=== PATIENT | male | born 1980 | race Caucasian/White ===

== ENCOUNTER → 2024-04-24 10:18 | Outpatient (REF) | payer OTHER, SELFPAY | LOC: RAD 10:18 | PROVIDERS: ATTENDING PHYSICIAN Specialist; FAMILY PHYSICIAN Physician Assistant | DX: R31.9 Hematuria, unspecified (principal); R82.90 Unspecified abnormal findings in urine | CPT/HCPCS: 74176 ==

== ENCOUNTER 2024-07-18 19:07 | Emergency (ER) | payer OTHER, SELFPAY ==
[2024-07-18 19:12] VITALS: BP 158/94
[2024-07-18 19:34] LABS: % Basophils 0.4 % (0-2); % Eosinophils 0.1 % (0-6); % Immature Granulocytes 0.4 % (0-0.5); % Lymphocytes 11.5 % (20.5-51.1); % Monocytes 7.1 % (1.7-9.3); % Neutrophils 80.5 % (42.2-75.2); Absolute Basophils 0.1 10^3/uL (0-0.2); Absolute Immature Granulocytes 0.1 10^3/uL (0-0.05); Absolute Lymphocytes 1.6 10^3/uL (1.2-3.4); Absolute Neutrophils 11.4 10^3/uL (1.4-6.5); Hematocrit 46.7 % (39.0-52.0); Hemoglobin 16.8 g/dL (13.0-18.0); Mean Corpuscular Hgb 32.9 pg (27.0-31.0); Mean Corpuscular Volume 91.6 fL (80.0-94.0); Mean Platelet Volume 9.6 fL (7.4-10.4); Nucleated Red Blood Cells % 0 % (-); Platelet Count 202 10^3/uL (130-400); Red Cell Dist. Width 11.9 % (11.5-14.5); White Blood Cell Count 14.2 10^3/uL (4.8-10.8)
[2024-07-18 19:45] LABS: Lactic Acid 1.6 mmol/L (0.7-2.0)
[2024-07-18 19:46] LABS: COVID-19 Antigen Negative (Negative)
[2024-07-18 19:48] LABS: ALT (SGPT) 38 U/L (0-50); AST (SGOT) 40 U/L (17-59); Albumin 5.1 g/dl (3.5-5.0); Alkaline Phosphatase 47 U/L (38-126); Blood Urea Nitrogen 15 mg/dl (9-20); Calcium 9.9 mg/dl (8.4-10.2); Carbon Dioxide 28 mmol/L (22-30); Chloride 98 mmol/L (98-107); Glucose 105 mg/dl (70-99); Sodium 140 mmol/L (135-145); Total Bilirubin 1.1 mg/dl (0.2-1.3); eGFR > 60.00
[2024-07-18] MEDS: TYLENOL 1000 MG PO (20:54)
[2024-07-18 21:17] LABS: Urine Albumin Negative (Neg - Trace); Urine Bilirubin Negative (Negative); Urine Character Clear (Clear); Urine Color Yellow; Urine Glucose Negative (Negative); Urine Ketone Negative (Negative); Urine Leukocyte Negative (Negative); Urine Nitrite Negative (Negative); Urine Occult Blood Negative (Negative); Urine Specific Gravity 1.015 (<1.030); Urine Urobilinogen Negative (Neg - 1+)
[2024-07-18 22:15] VITALS: BP 109/71
--- NOTE | 2024-07-18 22:28 | ED.GENMED ---
History of Present Illness
General
Chief Complaint: Fever
Time Seen by Provider: 07/18/24 20:51
History of Present Illness
History of Present Illness:
43-year-old male presents the emergency department for evaluation of fever and chills developing today. States he felt well in the morning however the chills developed the afternoon and he felt fluttering in the chest thus prompting him to come to
the hospital. He feels better currently but did not take any antipyretics. He denies any coughing, URI symptoms, chest pain, shortness of breath, nausea, vomiting, or rashes. No ill contacts at home.
Past History
Past History
ED Past Medical History: GERD and HTN
ED Past Surgical History: None
Social History
Tobacco: Non-smoker
Living: with family
Review of Systems
Review of Systems
Allergies reviewed?: Yes
All Other Systems: ROS reviewed and negative except as documented in HPI and ROS
Phy Exam
Physical Exam
Physical Exam:
GEN: Well appearing, NAD, WDWN
Eyes: PERRLA, EOMs intact, no scleral icterus
HENT: NCAT, oral mucosa moist, no JVD, no cervical adenopathy.
Lungs: CTAB, no wheezes, rales, rhonchi, normal chest wall excursion
Cardiac: Tachycardic, regular, no murmur
Abdomen: S, NT, ND, NABS, no masses or hepatosplenomegaly
Neuro: AO x 3
MSK: No gross deformity or ecchymosis. No edema. No digital clubbing
Skin: No rashes, petechiae. Normal color, no pallor or jaundice.
Psych: Calm, cooperative, proper hygiene
Sepsis
Sepsis Screening
Sepsis Assessment: Sepsis Ruled Out
Sepsis Screen
Sepsis Screen: Sepsis Ruled Out
Date: 07/18/24
Time: 23:38
Course
Orders/Labs/Results
Orders:
Orders
07/18/24 19:15
Electrocardiogram (*1) Urgent
Reason for Study: Tachycardia
EKG- Treatment ONCE
07/18/24 19:25
COVID-19 Antigen Urgent
Source: Nasal Swab
Complete Blood Count/With Diff Urgent
Comprehensive Metabolic Panel Urgent
Lactate Level [Lactic Acid] Urgent
Influenza A+B Rapid Molecular Urgent
ZHANNA Source: Nasal Swab
Specimen Description:
07/18/24 20:46
Acetaminophen [Tylenol] 1,000 mg .ROUTE .STK-MED ONE
07/18/24 20:54
Acetaminophen [Tylenol] 1,000 mg PO NOW STA
07/18/24 21:07
Urinalysis Reflex To Culture Urgent
Date Specimen was Collected: 07/18/24
Time Specimen was Collected: 21:05
07/18/24 21:38
CR Chest - 2 Views Urgent
Comment:
Reason For Exam: fever
Abnormal Lab Results
07/18/24
19:25
WBC 14.2 H 10^3/uL
(4.8-10.8)
MCH 32.9 H pg
(27.0-31.0)
Abs Immat Gran (auto) 0.1 H 10^3/uL
(0-0.05)
Absolute Neuts (auto) 11.4 H 10^3/uL
(1.4-6.5)
Absolute Monos (auto) 1.0 H 10^3/uL
(0.1-0.6)
Neutrophils % 80.5 H %
(42.2-75.2)
Lymphocytes % 11.5 L %
(20.5-51.1)
Glucose 105 H mg/dl
(70-99)
Albumin 5.1 H g/dl
(3.5-5.0)
07/18/24 19:25
07/18/24 19:25
Vital Signs
Initial and Last Documented VS:
Initial Vital Signs
Temp Pulse Resp BP Pulse Ox
101.2 F H 150 18 158/94 97
07/18/24 19:12 07/18/24 19:12 07/18/24 19:12 07/18/24 19:12 07/18/24 19:12
Last Documented Vital Signs
Temp Pulse Resp BP Pulse Ox
101.2 F H 125 25 109/71 92
07/18/24 19:12 07/18/24 22:30 07/18/24 22:30 07/18/24 22:15 07/18/24 22:30
MDM/Problems Addressed
MDM/Problems Addressed:
Patient's exam is unremarkable chest x-ray, urinalysis, and labs without clear indication of source of infection. He does have mild leukocytosis. Heart rate initially markedly elevated however with antipyresis this did improve although still
tachycardic at time of discharge. Ultimately this is likely a self-limited viral syndrome, supportive care and ED return parameters discussed
*Critical Care Note
Total Time (30-74mins, 75-104mins- exclusive of procedures): Not Applicable
ED Attending Note
-
Portions of this chart may have been created with voice recognition software.� Occasional wrong word or��sound alike� substitutions may have occurred due to the inherent limitations of voice recognition software.
Discharge Plan
Departure
Patient Disposition: Home (Routine Discharge)
Date of Disposition: 07/18/24
Time of Disposition: 22:29
Patient with high blood pressure during this ER visit?: No
Discharge Problem:
Fever
Instructions: Fever, Adult (DC)
Referrals:
Nicci Peralta, DO [Family Provider] -
Interventions
Interventions:
*Risk Screen - Suicide Last Done: 07/18/24 19:12
*General Assessment Last Done: 07/18/24 19:12
*Neglect/Abuse Screening Last Done: 07/18/24 19:12
ED- Fall Risk Assessment Last Done: 07/18/24 22:53
*ED COVID-19 Vaccine History Last Done: 07/18/24 19:12
*Nursing Disposition Last Done: 07/18/24 22:53
ED- Neurological Assessment Last Done: 07/18/24 21:53
ED-Skin Assessment Last Done: 07/18/24 21:53
Discharge Date and Time
Discharge Date/Time: 07/18/24 22:54
Print Language: ROMANIAN
== END 2024-07-18 22:54 | disposition home or self-care (01) ==
LOC: EMR 19:07
PROVIDERS: Physician Assistant; Student in an Organized Health Care Education/Training Program; EMERGENCY PHYSICIAN Emergency Medicine; FAMILY PHYSICIAN Family Medicine
DX: R50.9 Fever, unspecified (principal); K21.9 Gastro-esophageal reflux disease without esophagitis; I10 Essential (primary) hypertension
CPT/HCPCS: 99283; 71046; 80053; 81003; 83605; 85025; 87502; 87811; 93005